=== PATIENT | male | born 2000 | race Caucasian/White ===

== ENCOUNTER 2020-04-12 11:56 | Emergency (ER) | payer OTHER ==
--- NOTE | 2020-04-12 14:28 | ED Physician Documentation ---
History of Present Illness - Stated complaint Stated Complaint: CHEST AND L SHOULDER PX - Chief complaint Chief Complaint: Ext Problem - History obtained from History obtained from: Patient - Additonal information Additional information: 19-year-old male presents the emergency department with a number of concerns. He reports that he woke up this morning he had pain in his neck with radiation to the left arm. no falls or trauma. Since waking up he has also developed a sharp substernal chest pain. He denies shortness of breath or cough. No nausea vomiting or diarrhea. He denies unilateral leg swelling or calf pain tenderness. He does report a history of DVT in his father. This gentleman traveled to [place] via airplane about 4 weeks ago. Review of Systems Constitutional: denies: Fever, Chills Eyes: reports: Reviewed and negative Ears: reports: Reviewed and negative Nose: reports: Reviewed and negative Throat: reports: Reviewed and negative Cardiac: reports: Chest pain / pressure. denies: Palpitations, Pedal edema, Calf pain Respiratory: denies: Dyspnea, Cough, Hemoptysis, Wheezing GI: denies: Abdominal Pain, Nausea, Vomiting : reports: Reviewed and negative Skin: reports: Reviewed and negative Musculoskeletal: reports: Neck pain Neurologic: denies: Generalized weakness, Focal weakness, Numbness, Near syncope, Syncope, Seizure, Headache, LOC PD PAST MEDICAL HISTORY - Present Medications Home Medications: Ambulatory Orders Medication Instructions Recorded Confirmed Pantoprazole [Protonix] 40 mg PO DAILY #30 tablet 04/12/20 Sucralfate [Carafate] 1 gm PO ACHS #60 tablet 04/12/20 - Allergies Allergies/Adverse Reactions: Allergies Allergy/AdvReac Type Severity Reaction Status Date / Time No Known Drug Allergies Allergy Verified 04/12/20 12:17 PD ED PE EXPANDED - General General: Alert, No acute distress, Well developed/nourished - HEENT HEENT: Atraumatic, PERRL, Pharynx normal - Neck Neck: Supple w/out meningeal sx, Adenopathy, No tenderness. No: Limited ROM (Full range of motion in all planes. Axial loading does induce tingling in fingers on both hands) - Cardiac Cardiac: Regular Rate, Regular Rhythm, Radial strong equal, Cap refill < 2 sec. No: Murmur Present - Respiratory Respiratory: Clear to ausultation jennifer. No: Distress, Labored - Abdomen Abdomen: Normal Bowel sounds. No: Tender to palpation - Derm Derm: Normal color, Warm and dry. No: Rash, Petecchiae, Purpura Results - Vitals Vitals: Vital Signs - 24 hr 04/12/20 04/12/20 04/12/20 12:13 13:20 14:33 Temperature 36.4 C L 36.5 C Heart Rate 84 86 98 Respiratory 20 24 13 Rate Blood Pressure 132/81 H 127/79 107/68 O2 Saturation 99 100 100 04/12/20 16:00 Temperature Heart Rate 97 Respiratory 15 Rate Blood Pressure 120/88 H O2 Saturation 97 Oxygen O2 Source Room air - EKG (time done) 1221 Rate: Rate (enter#) (80) Rhythm: NSR [place]: Normal Intervals: Normal MA QRS: Normal Ischemia: Normal ST segments Compare to prior EKG: Old EKG unavailable Computer interpretation: Agree with computer - Labs Labs: Laboratory Tests 04/12/20 04/12/20 04/12/20 14:38 14:38 14:38 WBC 14.3 H RBC 5.18 Hgb 15.5 Hct 44.6 MCV 86.1 MCH 29.9 MCHC 34.8 RDW 12.4 Plt Count 230 MPV 9.7 Neut # (Auto) 11.2 H Lymph # (Auto) 1.8 [place] # (Auto) 1.0 Eos # (Auto) 0.2 Baso # (Auto) 0.1 Absolute Nucleated RBC 0.00 Nucleated RBC % 0.0 D-Dimer 252.1 Sodium 136 Potassium 3.9 Chloride 101 Carbon Dioxide 25 Anion Gap 10.0 BUN 16 Creatinine 0.9 Estimated GFR (MDRD) 107 Glucose 111 H Calcium 9.0 Total Bilirubin 0.6 AST 17 ALT 22 Alkaline Phosphatase 74 Troponin I High Sens Total Protein 7.7 Albumin 4.7 Globulin 3.0 Albumin/Globulin Ratio 1.6 Lipase 30 04/12/20 14:38 WBC RBC Hgb Hct MCV MCH MCHC RDW Plt Count MPV Neut # (Auto) Lymph # (Auto) [place] # (Auto) Eos # (Auto) Baso # (Auto) Absolute Nucleated RBC Nucleated RBC % D-Dimer Sodium Potassium Chloride Carbon Dioxide Anion Gap BUN Creatinine Estimated GFR (MDRD) Glucose Calcium Total Bilirubin AST ALT Alkaline Phosphatase Troponin I High Sens < 2.3 L Total Protein Albumin Globulin Albumin/Globulin Ratio Lipase - Rads (name of study) cervical xr Radiology: Final report received (No acute fracture or dislocation) cxr Radiology: Final report received (No acute cardiopulmonary process) CT angio chest Radiology: Final report received (No findings of large or central pulmonary embolism can be seen. Negative for aortic dissection. Distal esophageal wall thickening is seen. Reflux disease/esophagitis is suspected.) PD MEDICAL DECISION MAKING - ED course Complexity details: reviewed results, re-evaluated patient, considered differential, d/w patient ED course: 19-year-old male presents the emergency department initially for neck pain that he noted that radiated to his left arm this a.m. However over the short-term he is also developed sharp pleuritic chest pain. Initially on exam his UA was fairly unremarkable. Full cardiopulmonary auscultation with no hypoxia. However at about 1515 he developed sharp unrelenting chest pain worse with deep breath. though the D-dimer had not yet resulted I will proceed with a CT pulmonary angio given the acuity of his presentation. he was tianna given 10 ml of viscous lidcaine 1620: Patient is at this time free of chest or abdominal pain following the viscous lidocaine. The CT angio of his chest does not show any findings suggestive of a pulmonary embolus or an aortic dissection. However it does suggest distal esophagitis or reflux gastritis. These findings were discussed with the patient. I will start him on Protonix and Carafate. I have also recommended close follow-up with primary care doctor. He should be seen by a mobile heavy equipment operator for an EGD. Emergent and worrisome return precautions discussed Departure - Departure Disposition: 01 Home, Self Care Clinical Impression: Esophagitis Condition: Stable Record reviewed to determine appropriate education?: Yes Instructions: Esophagitis, ED GERD Ch Follow-Up: [facility] [Provider Group] - Within 1 week Prescriptions: Sucralfate [Carafate] 1 gm PO ACHS #60 tablet Pantoprazole [Protonix] 40 mg PO DAILY #30 tablet Comments: Cristino I am glad that your pain is better. Your chest x-ray EKG and cervical spine films were all normal. Your labs are all also essentially normal. The CT of your chest today does show that your distal esophagus is inflamed. This can cause the severe pain that you experienced. I would like you to start taking the Protonix once daily. Please take the Carafate at night before you go to bed. Please avoid eating or drinking 2 hours before bed and attempt to sleep upright on 3-4 pillows. This may help prevent reflux into your esophagus at night. Please see your primary care doctor as soon as possible to discuss this ED visit. You should be referred to a mobile heavy equipment operator in order to have an EGD completed. Return to the emergency department for black or bloody stools, high fevers uncontrolled vomiting or return of the pain.
[2020-04-12 14:50] LABS: BASOPHILS # (AUTO) 0.1 10^3/uL (0.0-0.1); BASOPHILS % (AUTO) 0.4 %; EOSINOPHILS # (AUTO) 0.2 10^3/uL (0.0-0.7); EOSINOPHILS % (AUTO) 1.5 %; HGB - HEMOGLOBIN 15.5 g/dL (14.0-18.0); LYMPHOCYTES # (AUTO) 1.8 10^3/uL (1.5-3.5); LYMPHOCYTES % (AUTO) 12.9 %; MEAN CORPUSCULAR HEMOGLOBIN 29.9 pg (27.0-31.0); MEAN CORPUSCULAR HGB CONC 34.8 g/dL (32.0-36.0); MEAN CORPUSCULAR VOLUME 86.1 fL (80.0-94.0); MEAN PLATELET VOLUME 9.7 fL (7.4-11.4); MONOCYTES % (AUTO) 6.7 %; NEUTROPHILS # (AUTO) 11.2 10^3/uL (1.5-6.6); NEUTROPHILS % (AUTO) 78.2 %; PLT - PLATELET COUNT 230 10^3/uL (130-450); RED BLOOD COUNT 5.18 10^6/uL (4.70-6.10); RED CELL DISTRIBUTION WIDTH 12.4 % (12.0-15.0); WHITE BLOOD COUNT 14.3 x10^3/uL (4.8-10.8)
[2020-04-12 15:03] LABS: ALBUMIN 4.7 g/dL (3.2-5.5); ALBUMIN/GLOBULIN RATIO 1.6 (1.0-2.2); BILIRUBIN,TOTAL 0.6 mg/dL (0.2-1.0); CREATININE 0.9 mg/dL (0.6-1.2); TOTAL PROTEIN 7.7 g/dL (6.7-8.2)
[2020-04-12] MEDS ORDERED: HYDROmorphone 1 MG/ML CARPUJECT IVP STA (15:18)
[2020-04-12] MEDS ORDERED: LIDOCAINE VISCOUS 2% 15 ML UDC MM STA (15:23)
[2020-04-12] MEDS ORDERED: IOVERSOL 320 100 ML VIAL IVP ONE ×2 (15:32→16:16)
--- NOTE | 2020-04-12 15:40 | XRAY Report ---
PROCEDURE: Cervical Spine 2 View INDICATIONS: neck pain, tingling in arms TECHNIQUE: 3 view(s) of the cervical spine were acquired. COMPARISON: None. FINDINGS: Bones: No fractures or dislocations to the T1 level. The lateral masses of C1 appear intact on the odontoid view. No suspicious bony lesions. Soft tissues: No prevertebral soft tissue swelling. The visualized pulmonary apices are unremarkab le. IMPRESSION: No acute fractures are seen. No acute bony abnormality is seen by plain film. If there is focal tenderness (or other strong clinical concern for a fracture that is not seen on thi s plain film study) then please consider a dedicated CT or MRI for further evaluation, depending upon clinical suspicion (assuming that there is no contraindication). Reviewed by: Hugh Li MD on 04/12/2020 2:39 PM [facility] Approved by: Hugh Li MD on 04/12/2020 2:39 PM [facility] Station ID: [id number]
--- NOTE | 2020-04-12 16:02 | CT Report ---
PROCEDURE: ANGIO CHEST W/WO INDICATIONS: pleuritic chest pain; r/o PE CONTRAST: IV CONTRAST: Optiray 320 ml: 80 PO CONTRAST: *NO PO CONTRAST TECHNIQUE: After the administration of intravenous contrast, 2 mm thick sections acquired from the pulmonary api amie to the posterior costophrenic angles. 3-dimensional maximum intensity projection (MIP) coronal a nd sagittal reformats were then acquired through the thorax. For radiation dose reduction, the follow ing was used: automated exposure control, adjustment of mA and/or kV according to patient size. COMPARISON: None available. FINDINGS: Image quality: Limited by bolus timing. Pulmonary arteries: The main pulmonary artery measures 200 Hounsfield units. Densities of greater inez n 250 Hounsfield units are considered ideal for detection of pulmonary embolism. No large or central pulmonary embolism can be seen. Lungs and pleura: Lungs are clear. No pleural effusions or pneumothorax. Central and peripheral ai rways are patent. Mediastinum: Heart size is normal, without pericardial effusion. No mediastinal or hilar adenopathy . Thoracic aorta is normal in caliber and enhancement. No findings of dissection are seen. Esophagu s is normal in caliber, without hiatal hernia. Distal esophageal wall thickening is seen. Bones and chest wall: No suspicious bony lesions. Ribs and thoracic spine appear intact throughout. The thyroid is normal. No axillary or supraclavicular adenopathy. Abdomen: Visualized upper abdominal solid organs appear normal in the early arterial phase of enhanc ement. IMPRESSION: No findings of large or central pulmonary embolism can be seen. Secondary to bolus timing, evaluation for smaller pulmonary emboli is limited. Negative for aortic dissection. Distal esophageal wall thickening is seen. Reflux disease/esophagitis is suspected. Clear lungs. Reviewed by: Hugh Li MD on 04/12/2020 3:00 PM [facility] Approved by: Hugh Li MD on 04/12/2020 3:00 PM [facility] Station ID: [id number]
--- NOTE | 2020-04-12 16:09 | XRAY Report ---
PROCEDURE: Chest 1 View X-Ray INDICATIONS: chest pain TECHNIQUE: One view of the chest was acquired. COMPARISON: Correlation is made with the accompanying chest CT, 04/12/2020 FINDINGS: Surgical changes and devices: None. Lungs and pleura: No pleural effusions or pneumothorax. Lungs are clear. Mediastinum: Mediastinal contours appear normal. Heart size is normal. Bones and chest wall: No suspicious bony lesions. Overlying soft tissues appear unremarkable. IMPRESSION: Portable chest within normal limits for age. Reviewed by: Hugh Li MD on 04/12/2020 3:08 PM [facility] Approved by: Hugh Li MD on 04/12/2020 3:08 PM [facility] Station ID: [id number]
[2020-04-12 16:41] VITALS: BP 117/74
== END 2020-04-12 16:50 | disposition home or self-care (01) ==
LOC: ED 11:56
DX: K20.90 Esophagitis, unspecified without bleeding (principal); Z82.49 Family history of ischemic heart disease and other diseases of the circulatory system; Z20.828 Contact with and (suspected) exposure to other viral communicable diseases
CPT/HCPCS: 36415; 71045; 71275; 72040; 80053; 83690; 84484; 85025; 85379; 87635; 93005; 96374; 99284; J1170; Q9967

== ENCOUNTER 2020-07-30 10:21 | Outpatient (CLI) | payer OTHER ==
[2020-07-30 21:09] LABS: CHLAMYDIA TRACHOMATIS DNA NEGATIVE (NEGATIVE); NEISSERIA GONORRHOEAE DNA NEGATIVE (NEGATIVE)
== END 2020-07-30 23:59 | disposition home or self-care (01) ==
LOC: LAB.R 10:21
PROVIDERS: ATTEND Family Medicine
DX: Z20.2 Contact with and (suspected) exposure to infections with a predominantly sexual mode of transmission (principal)
CPT/HCPCS: 87491; 87591; 87661